=== PATIENT | male | born 1990 | race Hispanic/Latino ===

== ENCOUNTER 2019-10-29 02:57 | Emergency (ER) | payer SELFPAY ==
[~2019-10-29] VITALS: Ht 167.6 cm; Wt 102.5 kg
[2019-10-29] MEDS ORDERED: ONDANSETRON HCL INJ 2MG/ML 2ML 2 MG/ML VIAL IV STA (03:09)
[2019-10-29] MEDS ORDERED: PANTOPRAZOLE 40 MG 10ML VIAL IV STA (03:09)
[2019-10-29] MEDS ORDERED: SODIUM CHLORIDE 0.9% 1000ML 1,000 ML IV ONE (03:15)
--- NOTE | 2019-10-29 03:22 | Emergency Department Note ---
History of Present Illnes History of Present Illness Chief Complaint: Abdominal Complaints History of Present Illness This is a 29 year old male c/o right quadrant abdominal pain that started at about 45 minutes ago. Patient states he threw up 2 times before arrival. States he ate pizza at about 2200. No distress noted at this time. Patient denies pain at this time. STATES PAIN RESOLVED ON ARRIVAL TO ER . Historian: Patient Arrival Mode: Car Onset (how long ago): minute(s) (45) Location: [facility] ABDOMEN Quality: PAIN WITH N/V Radiation: non-radiation Severity: moderate Onset quality: sudden Duration (how long): hour(s) (45 MINUTES) Timing of current episode: constant Progression: resolved Chronicity: new Context: recent illness, recent surgery Relieving factors: none Exacerbating factors: none Associated symptoms: denies other symptoms Past Medical/Family History Physician Review I have reviewed the patient's past medical and family history. Any updates have been documented here. Past Medical History Recent Fever: No Clinical Suspicion of Infectio: No New/Unexplained Change in Ment: No Past Medical History: None Past Surgical History: T&A Social History Smoking Cessation: Never Smoker Alcohol Use: Occasional Any Illegal Drug Use: No Family History Family history of heart diseas: No Other family history HTN Other Last Tetanus: unk Review of Systems Review of Systems Constitutional: no symptoms EENTM: no symptoms Cardiovascular: no symptoms Respiratory: no symptoms Gastrointestinal: as per HPI Genitourinary: no symptoms Musculoskeletal: no symptoms Neurological: no symptoms Psychological: no symptoms Endocrine: no symptoms Hematological/Lymphatic: no symptoms Review of other systems All other systems reviewed and negative. Physical Exam Related Data Allergies: Coded Allergies: No Known Allergies (Unverified , 10/29/19) Triage Vital Signs Vital Signs Date Time Temp Pulse Resp B/P (MAP) Pulse Ox O2 Delivery O2 Flow Rate FiO2 10/29/19 03:08 98.7 83 20 143/77 99 Vital signs reviewed: Yes Physical Exam CONSTITUTIONAL Constitutional: well-developed, well-nourished HENT HENT: normocephalic, atraumatic, oropharynx clear/moist, nose normal HENT L/R: left ext ear normal, right ext ear normal EYES Eyes: PERRL, conjunctivae normal NECK Neck: ROM normal PULMONARY Pulmonary: effort normal, breath sounds normal CARDIOVASCULAR Cardiovascular: regular rhythm, heart sounds normal, capillary refill normal, normal rate GASTROINTESTINAL Abdominal: soft, nontender, bowel sounds normal GENITOURINARY Genitourinary: exam deferred SKIN Skin: warm, dry MUSCULOSKELETAL Musculoskeletal: ROM normal NEUROLOGICAL Neurological: alert, oriented x 3, no gross motor or sensory deficits PSYCHOLOGICAL Psychological: mood/affect normal, judgement normal Results Laboratory Laboratory Laboratory Tests Test 10/29/19 03:00 White Blood Count 13.17 x10e3/uL (4.8-10.8) Red Blood Count 5.68 x10e6/uL (4.3-5.7) Hemoglobin 14.8 g/dL (14.0-18.0) Hematocrit 45.1 % (38.2-49.6) Mean Corpuscular Volume 79.4 fL (81-99) Mean Corpuscular Hemoglobin 26.1 pg (28-32) Mean Corpuscular Hemoglobin Concent 32.8 g/dL (31-35) Red Cell Distribution Width 13.4 % (11.7-14.4) Platelet Count 276 x10e3/uL (140-360) Neutrophils (%) (Auto) 58.1 % (38.7-80.0) Lymphocytes (%) (Auto) 30.7 % (18.0-39.1) Monocytes (%) (Auto) 8.1 % (4.4-11.3) Eosinophils (%) (Auto) 2.1 % (0.0-6.0) Basophils (%) (Auto) 0.5 % (0.0-1.0) Neutrophils # (Auto) 7.7 (2.1-6.9) Lymphocytes # (Auto) 4.0 (1.0-3.2) Monocytes # (Auto) 1.1 (0.2-0.8) Eosinophils # (Auto) 0.3 (0.0-0.4) Basophils # (Auto) 0.1 (0.0-0.1) Absolute Immature Granulocyte (auto 0.07 x10e3/uL (0-0.1) Urine Color Yellow (YELLOW) Urine Clarity Clear (CLEAR) Urine pH 6 (5 - 7) Urine Specific [place] 1.030 (1.010-1.025) Urine Protein Negative (NEGATIVE) Urine Glucose (UA) Negative (NEGATIVE) Urine Ketones Negative (NEGATIVE) Urine Blood Negative (NEGATIVE) Urine Nitrite Negative (NEGATIVE) Urine Bilirubin Negative (NEGATIVE) Urine Urobilinogen 0.2 mg/dL (0.2 - 1) Urine Leukocyte Esterase Negative (NEGATIVE) Urine RBC None /HPF (0-5) Urine WBC 0-5 /HPF (0-5) Urine Epithelial Cells Few /LPF (NONE) Urine Bacteria Few /HPF (NONE) Sodium Level 137 mmol/L (136-145) Potassium Level 3.6 mmol/L (3.5-5.1) Chloride Level 103 mmol/L (98-107) Carbon Dioxide Level 22 mmol/L (22-29) Anion Gap 15.6 mmol/L (8-16) Blood Urea Nitrogen 15 mg/dL (7-26) Creatinine 1.29 mg/dL (0.72-1.25) Estimat Glomerular Filtration Rate > 60 ML/MIN (60-) BUN/Creatinine Ratio 12 (6-25) Glucose Level 96 mg/dL (74-118) Calcium Level 9.5 mg/dL (8.4-10.2) Total Bilirubin 0.3 mg/dL (0.2-1.2) Aspartate Amino Transf (AST/SGOT) 32 IU/L (5-34) Alanine Aminotransferase (ALT/SGPT) 31 IU/L (0-55) Alkaline Phosphatase 129 IU/L (40-150) Total Protein 7.2 g/dL (6.5-8.1) Albumin 4.1 g/dL (3.5-5.0) Globulin 3.1 g/dL (2.3-3.5) Albumin/Globulin Ratio 1.3 (0.8-2.0) Amylase Level 45 U/L (25-125) Lipase 14 U/L (8-78) Lab results reviewed: Yes Imaging Imaging results reviewed: Yes Impressions Patient Name: DORCAS SANCHES MR #: [id number] : 1990 Age/Sex: 29/M Req #: [id number] Adm Physician: Ordered by: DANIEL CARDOSO MD Report #: [id number] Location: ER Room/Bed: Procedure: [id number] DX/ABDOMEN ACUTE SERIES W/PA CXR Exam Date: Exam Time: REPORT STATUS: Signed Acute Abdominal Series CPT CODE: 32189 INDICATION: Epigastric pain, nausea, vomiting. COMPARISON: None. FINDINGS: Single view of the chest shows no mass or infiltrate. No interstitial edema. Mild eventration of the right diaphragm. Supine and erect views of the abdomen: Medical Devices: None Bowel: Normal bowel gas pattern. No dilated loops of small or large bowel. No air-fluid levels or pneumatosis. Free air: Normal. Abdominal calcifications: None over the renal shadows or along the expected course of the ureters Organomegaly: None Bones: No focal osseous lesions. IMPRESSION: 1. Unremarkable bowel gas pattern. 2. Clear lungs. Signed by: Dr. Mitul Richardson MD on 10/29/2019 4:55 AM Dictated By: MITUL RICHARDSON MD 4 Transcribed By: ANTONETTE on 10/29/19454 COPY TO: DANIEL CARDOSO MD~ Critical Care Time Subsequent provider I assumed direction of critical care for this patient from another provider of my specialty. Assessment & Plan Assessment & Plan Final Impression: (1) Abdominal pain (2) Vomiting Assessment & Plan Patient with right upper quadrant pain that started 45 minutes to arrival with 2 episodes of vomiting. Patient states pain resolved upon arrival to ER. Dermal exam is benign at this time. CBC, CMP, amylase, lipase, UA, acute abdominal series ordered to eval for elevated LFTs, pancreatitis, bowel obstruction,constipation. The patient's workup was unremarkable. She discharged home with a prescription for Zofran when necessary nausea 1 every 6 hours. Patient should follow up PCP Thursday or Thursday if he has any other symptoms or return to ER should anything change. Depart Disposition: HOME, SELF-CARE Last Vital Signs Date Time Temp Pulse Resp B/P (MAP) Pulse Ox O2 Delivery O2 Flow Rate FiO2 10/29/19 03:08 98.7 83 20 143/77 99 Medications in the ED Sodium Chloride 1,000 ml @ 999 mls/hr Q1H1M ONCE IV ; Start 10/29/19 at 03:15; Stop 10/29/19 at 04:15 Ondansetron HCl 4 mg NOW STAT IV ; Start 10/29/19 at 03:09; Stop 10/29/19 at 03:12; Status DC Pantoprazole Sodium 40 mg NOW STAT IV ; Start 10/29/19 at 03:09; Stop 10/29/19 at 03:12; Status DC DANIEL CARDOSO MD Oct 29, 2019 03:22
[2019-10-29 03:26] LABS: BASOPHILS # (AUTO) 0.1 (0.0-0.1); BASOPHILS % 0.5 % (0.0-1.0); EOSINOPHILS # (AUTO) 0.3 (0.0-0.4); EOSINOPHILS % 2.1 % (0.0-6.0); HEMATOCRIT 45.1 % (38.2-49.6); HEMOGLOBIN 14.8 g/dL (14.0-18.0); LYMPHOCYTES % 30.7 % (18.0-39.1); MEAN CORPUSCULAR HEMOGLOBIN 26.1 pg (28-32); MEAN CORPUSCULAR HGB CONC 32.8 g/dL (31-35); MEAN CORPUSCULAR VOLUME 79.4 fL (81-99); MONOCYTES # (AUTO) 1.1 (0.2-0.8); MONOCYTES % 8.1 % (4.4-11.3); NEUTROPHILS # (AUTO) 7.7 (2.1-6.9); NEUTROPHILS % 58.1 % (38.7-80.0); PLATELET COUNT 276 x10e3/uL (140-360); RED BLOOD COUNT 5.68 x10e6/uL (4.3-5.7); RED CELL DISTRIBUTION WIDTH 13.4 % (11.7-14.4)
[2019-10-29 03:40] LABS: ALANINE AMINOTRANSFERASE 31 IU/L (0-55); ALBUMIN 4.1 g/dL (3.5-5.0); ALBUMIN/GLOBULIN RATIO 1.3 (0.8-2.0); ALKALINE PHOSPHATASE 129 IU/L (40-150); ANION GAP 15.6 mmol/L (8-16); BLOOD UREA NITROGEN 15 mg/dL (7-26); BUN/CREATININE RATIO 12 (6-25); CALCIUM 9.5 mg/dL (8.4-10.2); CARBON DIOXIDE 22 mmol/L (22-29); CHLORIDE 103 mmol/L (98-107); CREATININE, SERUM 1.29 mg/dL (0.72-1.25); EST GLOMERULAR FILTRATION RATE > 60 ML/MIN (60-); GLUCOSE 96 mg/dL (74-118); POTASSIUM 3.6 mmol/L (3.5-5.1); SODIUM 137 mmol/L (136-145)
[2019-10-29 03:44] LABS: AMYLASE 45 U/L (25-125); LIPASE 14 U/L (8-78)
[2019-10-29 03:50] LABS: CLARITY,URINE CLEAR (CLEAR); COLOR,URINE YELLOW (YELLOW)
[2019-10-29 03:51] LABS: BACTERIA,URINE FEW /HPF; BILIRUBIN,URINE NEGATIVE (NEGATIVE); EPITHELIAL CELLS,URINE FEW /LPF; KETONES,URINE NEGATIVE (NEGATIVE); LEUKOCYTE ESTERASE ,URINE NEGATIVE (NEGATIVE); NITRITE,URINE NEGATIVE (NEGATIVE); PROTEIN,URINE DIPSTICK NEGATIVE (NEGATIVE); URINE UROBILINOGEN 0.2 mg/dL (0.2 - 1); WBC,URINE (MAN) 0-5 /HPF (0-5)
--- NOTE | 2019-10-29 04:58 | Diagnostic Imaging Report ---
Acute Abdominal Series CPT CODE: 37404 INDICATION: Epigastric pain, nausea, vomiting. COMPARISON: None. FINDINGS: Single view of the chest shows no mass or infiltrate. No interstitial edema. Mild eventration of the right diaphragm. Supine and erect views of the abdomen: Medical Devices: None Bowel: Normal bowel gas pattern. No dilated loops of small or large bowel. No air-fluid levels or pneumatosis. Free air: Normal. Abdominal calcifications: None over the renal shadows or along the expected course of the ureters Organomegaly: None Bones: No focal osseous lesions. IMPRESSION: 1. Unremarkable bowel gas pattern. 2. Clear lungs. Signed by: Dr. Mary Richardson MD on 10/29/2019 4:55 AM
[2019-10-29 05:01] VITALS: BP 121/62
== END 2019-10-29 05:14 | disposition home or self-care (01) ==
LOC: EDBD 02:57 → ER 02:57
DX: R10.11 Right upper quadrant pain (principal); R11.2 Nausea with vomiting, unspecified
CPT/HCPCS: 36415; 74022; 80053; 81001; 82150; 83690; 85025; 99283; C9113; J2405; J7030